=== PATIENT | female | born 1975 | race African-American/Black ===

== ENCOUNTER 2018-12-27 11:03 | Emergency (ER) | payer OTHER ==
[~2018-12-27] VITALS: Ht 172.7 cm; Wt 92.5 kg
[~2018-12-27 11:03] MED LIST: BACTRIM DS TAB1 EACH PO; CARTIA; NORCO 5-325 TA1 EACH PO
[2018-12-27] MEDS ORDERED: TRAMADOL 50 MG50 MG PO (11:27)
[2018-12-27] MEDS ORDERED: NAPROSYN500 MG PO (11:27)
[2018-12-27 12:03] VITALS: BP 116/71
== END 2018-12-27 12:23 | disposition home or self-care (01) ==
LOC: ER 11:03
DX: S93.402A Sprain of unspecified ligament of left ankle, initial encounter (principal); S80.811A Abrasion, right lower leg, initial encounter; S40.812A Abrasion of left upper arm, initial encounter; Z88.5 Allergy status to narcotic agent; W18.39XA Other fall on same level, initial encounter; Y92.89 Other specified places as the place of occurrence of the external cause; Y93.89 Activity, other specified; Y99.8 Other external cause status